=== PATIENT | male | born 1955 | race Caucasian/White ===

== ENCOUNTER 2020-06-30 08:55 | Day surgery (SDC) | payer MEDICARE ==
[2020-06-24 14:54] VITALS: BMI 31.8
[~2020-06-30 08:55] MED LIST: LACTATED RINGERS 1,000 ML IV SCH
[2020-06-30 09:31] VITALS: RESP 16; TEMP 97.9
[2020-06-30] MEDS ORDERED: LIDOCAINE 1% (10MG/ML) FOR IV START INTRADERMA ONE (09:31)
[2020-06-30] MEDS ORDERED: PROPOFOL 10 MG/ML 20 ML VIAL IV ONE (09:39)
--- NOTE | 2020-06-30 09:42 | P.GSHP ---
History of Present Illness H&P Date: 06/30/20 Chief Complaint: Colon cancer screening 64-year-old male here today for colonoscopy. Last colonoscopy 15 years ago. Patient with family history of colon cancer in both parents and grandparents. No bowel complaints. Concerned about hemorrhoids. Past Medical History Past Medical History: Asthma, Hypertension Additional Past Medical History / Comment(s): diverticultitis History of Any Multi-Drug Resistant Organisms: None Reported Past Surgical History: Appendectomy, Orthopedic Surgery Additional Past Surgical History / Comment(s): BILAT VARICOSE VEIN SX, BILAT ROTATOR CUFF REPAIR, COLONOSCOPY, Past Anesthesia/Blood Transfusion Reactions: Postoperative Nausea & Vomiting (PONV) Smoking Status: Current every day smoker - Past Family History Mother Family Medical History: Cancer Father Family Medical History: Cancer Sister(s) Family Medical History: Cancer Additional Family Medical History / Comment(s): 2 SISTERS HAD CANCER Medications and Allergies Home Medications Medication Instructions Recorded Confirmed Type carvediloL [Carvedilol] 12.5 mg PO DAILY 06/24/20 06/30/20 History Allergies Allergy/AdvReac Type Severity Reaction Status Date / Time acetaminophen [From Tylenol] Allergy Abdominal Verified 06/30/20 09:14 Pain Surgical - Exam Vital Signs Temp Pulse Resp BP Pulse Ox 97.9 F 85 16 152/88 97 06/30/20 09:29 06/30/20 09:29 06/30/20 09:29 06/30/20 09:29 06/30/20 09:29 Physical exam: General: Well-developed, well-nourished HEENT: Normocephalic, sclerae nonicteric Abdomen: Nontender, nondistended Extremities: No edema Neuro: Alert and oriented Assessment and Plan (1) Colon cancer screening Narrative/Plan: Proceed with colonoscopy Current Visit: Yes Status: Acute Code(s): Z12.11 - ENCOUNTER FOR SCREENING FOR MALIGNANT NEOPLASM OF COLON SNOMED Code(s): 906847666
--- NOTE | 2020-06-30 10:00 | P.PCN ---
Date of Procedure: 06/30/20 Procedure(s) Performed: PREOPERATIVE DIAGNOSIS: Colon cancer screening POSTOPERATIVE DIAGNOSIS: Small transverse colon polyp, internal and external hemorrhoids PROCEDURE: Colonoscopy with snare polypectomy ANESTHESIA: MAC SURGEON: Pete An M.D. SPECIMENS: Transverse colon polyp ENDOSCOPIC PROCEDURE: The patient was placed on the endoscopy table in the left decubitus position. The Olympus colonoscope was inserted into the anus and passed under direct visualization to the base of the cecum. The appendiceal orifice was visualized. From that point the scope was slowly withdrawn inspecting all surfaces carefully. There were no neoplastic inflammatory or polypoid lesions throughout the cecum and ascending colon. The transverse colon a small polyp seen and removed using the snare with cautery technique. The remainder of the transverse descending sigmoid and rectum was normal. There is no visible diverticulosis. At the anus patient had small internal and external hemorrhoids without inflammatory change or bleeding. Prostate felt slightly enlarged. The patient was taken to the recovery room in stable condition per anesthesia guidelines. RECOMMENDATIONS: Resume diet. Await biopsy results. Follow-up colonoscopy 5 years.
[2020-06-30 10:13] VITALS: PULSE 72
[2020-06-30 10:19] VITALS: BP 148/82
== END 2020-06-30 10:35 | disposition home or self-care (01) ==
LOC: ORWHC2ENDO 08:55
PROVIDERS: ATTEND Surgery
DX: Z12.11 Encounter for screening for malignant neoplasm of colon (principal); D12.3 Benign neoplasm of transverse colon; K64.8 Other hemorrhoids; K64.4 Residual hemorrhoidal skin tags; N40.0 Benign prostatic hyperplasia without lower urinary tract symptoms; J45.909 Unspecified asthma, uncomplicated; I10 Essential (primary) hypertension; K57.90 Diverticulosis of intestine, part unspecified, without perforation or abscess without bleeding; K08.89 Other specified disorders of teeth and supporting structures; F17.200 Nicotine dependence, unspecified, uncomplicated; Z98.890 Other specified postprocedural states; Z90.49 Acquired absence of other specified parts of digestive tract; Z91.89 Other specified personal risk factors, not elsewhere classified; Z79.899 Other long term (current) drug therapy; Z88.6 Allergy status to analgesic agent; Z80.0 Family history of malignant neoplasm of digestive organs; Z80.9 Family history of malignant neoplasm, unspecified
CPT/HCPCS: 88305; 45385; J2704

== ENCOUNTER 2021-07-19 05:37 | Day surgery (SDC) | payer MEDICARE ==
[2021-07-14 15:45] VITALS: BMI 31.8
--- NOTE | 2021-07-18 15:51 | HP ---
HISTORY AND PHYSICAL DATE OF SURGERY: 07/19/2021 Juan Horn is a 65-year-old gentleman seen with symptomatic left knee osteoarthritis. We discussed options for treatment. He elected to proceed with left total knee arthroplasty. Consent was obtained. Medical clearance was provided by Dr. Juan Sosa. PAST MEDICAL HISTORY: Hypertension. PAST SURGICAL HISTORY: Rotator cuff repair, carpal tunnel release, appendectomy. DAILY MEDICATIONS: Coreg, Mobic. ALLERGIES: NONE REPORTED. SOCIAL HISTORY: He denies tobacco use. PHYSICAL EVALUATION OF THE LEFT KNEE: His range of motion is negative 2 to 125. Mild effusion. Tenderness, medial joint line. Crepitus, medial and patellofemoral compartments with range of motion. Pain with patellofemoral compression. Ligaments stable. Hip rotation without pain. Distal neurovascular exam is intact. Radiographs of the left knee reveal severe osteoarthritic changes. IMPRESSION: 1. Left knee osteoarthritis. 2. Hypertension. PLAN: Left total knee arthroplasty. MMODL / IJN: [id number] /
[~2021-07-19 05:37] MED LIST changes: +ACETAMINOPHEN TAB 500 MG TAB PO PRN; +DEXAMETHASONE SOD PHOSPHATE 4 MG/ML 1 ML VIAL IV ONE; +MELOXICAM 7.5 MG TAB PO PRN; +ONDANSETRON 4 MG/2 ML VIAL IVP ONE; +TRANEXAMIC ACID IN NACL,ISO-OS 1,000 MG in SALINE 1 100ML.BAG IVPB PRN
[2021-07-19] MEDS ORDERED: MIDAZOLAM 2 MG/2 ML VIAL IVP ONE (07:00)
[2021-07-19] MEDS ORDERED: SCOPOLAMINE 1 MG/72 HR PATCH TRANSDERM ONE (07:20)
[2021-07-19] MEDS ORDERED: NEOSTIGMINE 1 MG/ML 10 ML VIAL ONE (07:26)
[2021-07-19] MEDS ORDERED: GLYCOPYRROLATE 0.2 MG/ML 2 ML VIAL ONE (07:26)
[2021-07-19] MEDS ORDERED: diphenhydrAMINE 50 MG/ML 1 ML VIAL ONE (07:26)
[2021-07-19] MEDS ORDERED: ROPIVACAINE 5 MG/ML 30 ML VIAL ONE (07:26)
[2021-07-19] MEDS ORDERED: LABETALOL 5 MG/ML VIAL MDV ONE (07:26)
[2021-07-19] MEDS ORDERED: TRANEXAMIC ACID IN NACL,ISO-OS 1,000 MG/100 ML BAG ONE (07:26)
[2021-07-19] MEDS ORDERED: ROCURONIUM 10 MG/ML (5 ML VIAL) IV ONE (07:26)
[2021-07-19] MEDS ORDERED: HYDROmorphone (PF) 1 MG/ML ONE (07:26)
[2021-07-19] MEDS ORDERED: LIDOCAINE 1% INJ 10MG/ML (20 ML MDV) ONE (07:26)
[2021-07-19] MEDS ORDERED: PROPOFOL 10 MG/ML 20 ML VIAL IV ONE (07:26)
[2021-07-19] MEDS ORDERED: SUCCINYLCHOLINE CHLORIDE 100 MG/5 ML SYR IV ONE (07:26)
[2021-07-19] MEDS ORDERED: DEXAMETHASONE SOD PHOSPHATE 4 MG/ML 1 ML VIAL ONE (07:26)
[2021-07-19] MEDS ORDERED: fentaNYL (PF) 50 MCG/ML 2 ML AMP ONE (07:26)
[2021-07-19] MEDS ORDERED: ceFAZolin 1,000 MG in SODIUM CHLORIDE 0.9% 1,000 ML IRRIGATION ONE (07:57)
[2021-07-19] MEDS ORDERED: ROPIVACAINE 0.2%-NS ON-Q PUMP 1,090 MG, EMPTY PAIN BALL 1 EACH MISCELLANE PRN (08:36)
--- NOTE | 2021-07-19 08:38 | P.ANPRN ---
Procedure Note - Anesthesia - Nerve Block Performed Left Adductor Canal Infusion Time Out Performed: Yes Date of Procedure: 07/19/21 Procedure Start Time: 06:59 Location of Patient: PreOp Indication: Acute Post-Operative Pain, Requested by Surgeon Sedation Type: Sedate with meaningful contact maintained Preparation: Sterile Prep, Sterile Dressing Position: Supine Catheter: Indwelling Needle Types: On-Q Needle Gauge: 18 Ultrasound used to visualize needle placement: Yes Ultrasound used to observe medication spread: Yes Injectate: 0.5% Ropivacaine (see comment for volume) (20 ml + decadron 4 mg) Blood Aspirated: No Pain Paresthesia on Injection Noted: No Resistance on Injection: Normal Image Stored and Saved: Yes Events: Uneventful and Well Tolerated Left iPack Single Time Out Performed: Yes Date of Procedure: 07/19/21 Procedure Start Time: 07:12 Location of Patient: PreOp Indication: Acute Post-Operative Pain, Requested by Surgeon Sedation Type: Sedate with meaningful contact maintained Preparation: Sterile Prep, Sterile Dressing Position: Right Lateral Catheter: None Needle Types: Pajunk Needle Gauge: 20 Ultrasound used to visualize needle placement: Yes Ultrasound used to observe medication spread: Yes Injectate: 0.5% Ropivacaine (see comment for volume) (15 ml + decadron 4mg) Blood Aspirated: No Pain Paresthesia on Injection Noted: No Resistance on Injection: Normal Image Stored and Saved: Yes Events: Uneventful and Well Tolerated
[2021-07-19] MEDS ORDERED: LACTATED RINGERS 1,000 ML IV ONE ×2 (08:57→09:05)
[2021-07-19] MEDS ORDERED: NALOXONE 0.4 MG/ML 1 ML VIAL IV PRN (09:05)
[2021-07-19] MEDS ORDERED: ONDANSETRON 4 MG/2 ML VIAL IVP PRN (09:05)
[2021-07-19] MEDS ORDERED: HYDROcodone/APAP 7.5-325MG 1 EACH TAB PO PRN (09:05)
[2021-07-19] MEDS ORDERED: HYDROcodone/APAP 5-325MG 1 EACH TAB PO PRN (09:05)
[2021-07-19] MEDS ORDERED: HYDROmorphone 0.2 MG/1 ML SYRINGE IVP PRN (09:05)
[2021-07-19] MEDS ORDERED: HYDROmorphone 0.5 MG/0.5 ML SYRINGE IVP PRN ×2 (09:05)
--- NOTE | 2021-07-19 09:05 | P.OP ---
Date of Procedure: 07/19/21 Preoperative Diagnosis: Left knee osteoarthritis Postoperative Diagnosis: Left knee osteoarthritis Procedure(s) Performed: Left total knee arthroplasty Implants: 1. Depuy attune size 7 left cruciate retaining cemented femur 2. Depuy attune size 7 fixed bearing cemented tibial baseplate 3. Depuy attune size 7 fixed bearing cruciate retaining 12 mm polyethylene tibial insert 4. Depuy attune 38 mm all polyethylene cemented patella Anesthesia: GETA, regional (Adductor canal catheter, Ipack block) Surgeon: Moses Domínguez Entry Level Drafter #1: Garbiel Ortiz Estimated Blood Loss (ml): 45 Pathology: other (Bone) Condition: stable Disposition: PACU Indications for Procedure: 65-year-old gentleman seen with symptomatic left knee osteoarthritis. After having treatment options discussed, he elected to proceed with total knee arthroplasty. Operative Findings: See description of procedure Description of Procedure: Patient was taken to the operative suite after having an adductor canal catheter placed by the department of anesthesia as well as an Ipack block for postoperative pain management. Patient underwent a general anesthetic by the department of anesthesia. Patient was given preoperative IV intake antibiotics and TXA. A well-padded tourniquet was placed about the left lower extremity. The lower extremity was then prepped and draped in the normal sterile orthopedic fashion. The extremity was elevated, a tourniquet was insufflated to 300. A standard anterior incision was made sharply through skin. Dissection was taken down through the subcutaneous soft tissues down to the extensor mechanism. A medial arthrotomy was performed, patella was everted and knee was flexed. There was advanced osteoarthritis noted. I introduced my distal intramedullary femoral drill. I then introduced the distal femoral cutting jig. Norbert THOMPSON secured the cutting jig with 2 pins. I held retractors in position while Norbert THOMPSON performed the distal femoral resection through the guide area we now removed her distal femoral cutting guide. We now placed our 4-in-1 femoral cutting block and positioned and it was secured with 2 pins by Norbert THOMPSON while I held the block in position. The distal femoral finishing was now completed. A proximal tibial cutting guide was positioned. I held the guide in the appropriate position with both hands well Norbert THOMPSON inserted stabilizing pins into the guide. Proximal tibial cut was made. We now placed a trial femoral component into position, along with an appropriate size tibial tray and insert. We now took the knee through range of motion and had full extension good flexion and good overall soft tissue balance noted. The patella was everted and stabilized with 2 towel clips held by Norbert THOMPSON while I performed a flush with patellar quad tendon utilizing a fresh sawblade. We templated the patella, appropriate drill holes were made. An appropriate trial patella was positioned, knee was taken through full range of motion with the patella tracking very nicely. The trial patella was removed. Drill holes were made through the femoral component. All trial components were removed after m arking off the appropriate rotation of the tibia. Retractors were now positioned along the proximal tibia. An appropriate keel punch was made with the appropriate size tibial guide by myself on Norbert THOMPSON assisted by holding retractors. At this point appropriate size implants were chosen and opened. The joint was irrigated copiously with pulse lavage mechanical irrigation. The posterior capsule was infiltrated with local analgesic. The wound was irrigated with pulse lavage mechanical irrigation. We mixed antibiotic methylmethacrylate. We placed the knee into flexion. We placed mul tiple retractors assisted by Norbert THOMPSON to expose the proximal tibia. Once the methyl methacrylate was ready, the tibial component was cemented into place removing any excess methylmethacrylate form by both myself and Norbert THOMPSON. The femoral component was cemented into place removing the removing any excess methylmethacrylate performed by both myself and Norbert THOMPSON. We then inserted the appropriate size polyethylene tibial insert. We made sure that it was locked into position. We took the knee into full extension, and then back in a flexion making sure we had removed any excess methylmethacrylate. The patellar component was then cemented down and secured with clamp. Excess methylmethacrylate removed. We kept the knee in full extension, patellar clamp in position until methylmethacrylate had hardened. Once it had hardened the patellar clamp was removed. The knee was taken through full range of motion. The patella tracked nicely. There was good soft tissue balancing. The tourniquet was now released. Additional hemostasis was achieved via electrocautery. A second gram of TXA was given. The wound again was irrigated with pulse lavage mechanical irrigation. The superficial soft tissues were infiltrated local analgesic. The extensor mechanism was repaired with Ethibond. We checked the repair with range of motion and it was stable. The subcutaneous soft tissues were repaired with Vicryl in layers. The skin was approximated with pernio/Dermabond. Sterile dressings were applied followed by loose web roll and Sedrick bandage. The patient was transferred to a bed, and taken to recovery in stable and satisfactory condition. Norbert THOMPSON assisted with this complex procedure.
[2021-07-19 09:46] VITALS: TEMP 96.8
[2021-07-19] MEDS: HYDROmorphone 0.5 MG/0.5 ML SYRINGE IVP PRN ×2 (09:52→10:10)
[2021-07-19] MEDS ORDERED: ROPIVACAINE 0.2%-NS ON-Q PUMP 2 MG/ML EACH MISCELLANE ONE (10:00)
[2021-07-19 10:11] VITALS: RESP 16
--- NOTE | 2021-07-19 10:37 | XR ---
Limited left knee HISTORY: Status post left knee arthroplasty 3 views the left knee, no comparisons Patient is status post left knee arthroplasty. There is anatomic alignment. Lucencies present within the soft tissues, there is soft tissue swelling present. IMPRESSION: Orthopedic follow-up.
[2021-07-19] MEDS ORDERED: HYDROcodone/APAP 7.5-325MG 1 EACH TAB PO ONE (11:08)
[2021-07-19] MEDS ORDERED: ceFAZolin 1,000 MG VIAL IVPB ONE (11:40)
[2021-07-19 12:08] VITALS: BP 158/84; PULSE 86
== END 2021-07-19 13:13 | disposition home health service (06) ==
LOC: OR 05:37
PROVIDERS: ATTEND Orthopaedic Surgery
DX: M17.12 Unilateral primary osteoarthritis, left knee (principal); I10 Essential (primary) hypertension; G89.18 Other acute postprocedural pain
CPT/HCPCS: 27447; 97110; 97161; 64999; 64448; 76942; 88300; 73560; C1776; C1713 ×2; J2250; J1200; J1100; J2710; J0690 ×2; J2405; J2001; J3010; J1170 ×2; J2795 ×2; J0330; J2704

== ENCOUNTER 2021-08-23 09:00 | Inpatient (IN) | payer MEDICARE ==
[~2021-08-23 09:00] MED LIST changes: -DEXAMETHASONE SOD PHOSPHATE 4 MG/ML 1 ML VIAL IV ONE; -LACTATED RINGERS 1,000 ML IV SCH; -ONDANSETRON 4 MG/2 ML VIAL IVP ONE
[2021-08-23] MEDS ORDERED: LACTATED RINGERS 1,000 ML IV ONE ×2 (13:46→15:53)
[2021-08-23] MEDS ORDERED: LIDOCAINE 1% (10MG/ML) FOR IV START INTRADERMA PRN (13:47)
[2021-08-23] MEDS ORDERED: ONDANSETRON 4 MG/2 ML VIAL IVP ONE ×2 (13:47→17:44)
[2021-08-23] MEDS ORDERED: LACTATED RINGERS 1,000 ML IV SCH (13:47)
[2021-08-23] MEDS ORDERED: DEXAMETHASONE SOD PHOSPHATE 4 MG/ML 1 ML VIAL IV ONE (13:47)
[2021-08-23] MEDS ORDERED: MIDAZOLAM 2 MG/2 ML VIAL IV ONE (14:32)
[2021-08-23] MEDS ORDERED: fentaNYL (PF) 50 MCG/ML 2 ML AMP IV ONE (14:32)
[2021-08-23] MEDS ORDERED: PROPOFOL 10 MG/ML 20 ML VIAL IV ONE (14:49)
[2021-08-23] MEDS ORDERED: ROPIVACAINE 5 MG/ML 30 ML VIAL ONE (14:49)
[2021-08-23] MEDS ORDERED: fentaNYL (PF) 50 MCG/ML 2 ML AMP ONE (14:49)
[2021-08-23] MEDS ORDERED: HYDROmorphone (PF) 1 MG/ML ONE (14:49)
[2021-08-23] MEDS ORDERED: SODIUM CHLORIDE 0.9% (PF) 10 ML VIAL ONE (14:49)
[2021-08-23] MEDS ORDERED: LIDOCAINE 2% INJ 20 MG/ML (2 ML VIAL) ONE (14:49)
[2021-08-23] MEDS ORDERED: SUCCINYLCHOLINE CHLORIDE 100 MG/5 ML SYR IV ONE (14:49)
--- NOTE | 2021-08-23 15:28 | P.ANPRN ---
Procedure Note - Anesthesia - Nerve Block Performed Left Adductor Canal Single Time Out Performed: Yes (1428) Date of Procedure: 08/23/21 Procedure Start Time: Procedure Stop Time: Location of Patient: PreOp Indication: Acute Post-Operative Pain, Requested by Surgeon Specifically requested for management of pain by DrJaimee: Moses Domínguez Sedation Type: Sedate with meaningful contact maintained Preparation: Sterile Prep Position: Supine Catheter: None Needle Types: Pajunk Needle Gauge: 21 Ultrasound used to visualize needle placement: Yes Ultrasound used to observe medication spread: Yes Injectate: 0.5% Ropivacaine (see comment for volume) (30cc) Blood Aspirated: No Pain Paresthesia on Injection Noted: No Resistance on Injection: Normal Image Stored and Saved: Yes Events: Uneventful and Well Tolerated
[2021-08-23] MEDS ORDERED: ONDANSETRON 4 MG/2 ML VIAL IVP PRN (16:00)
[2021-08-23] MEDS ORDERED: NALOXONE 0.4 MG/ML 1 ML VIAL IV PRN (16:00)
[2021-08-23] MEDS ORDERED: HYDROcodone/APAP 5-325MG 1 EACH TAB PO PRN (16:00)
[2021-08-23] MEDS ORDERED: HYDROmorphone 0.5 MG/0.5 ML SYRINGE IVP PRN (16:00)
--- NOTE | 2021-08-23 16:00 | P.OP ---
Date of Procedure: 08/23/21 Preoperative Diagnosis: Left knee quadriceps tendon tear/medial retinacular tear Postoperative Diagnosis: 1. Left knee quadriceps tendon tear 2. Left knee medial retinacular tear Procedure(s) Performed: 1. Left knee open quadriceps tendon repair 2. Left knee open medial retinacular repair Anesthesia: GETA, regional (Adductor canal block) Surgeon: Moses Domínguez Motorcoach Operator #1: Grabiel Ortiz Estimated Blood Loss (ml): 20 Pathology: none sent Condition: stable Disposition: PACU Indications for Procedure: 65 -year-old patient seen with a probable left knee medial retinacular tear and quadriceps tendon tear with history of previous total knee arthroplasty and multiple postoperative falls. I recommended open repair. The patient was agreeable. Consent was obtained. Operative Findings: See description of procedure Description of Procedure: Patient was taken to the operative suite after having received a and adductor canal block by the department of anesthesia for postoperative pain management. He received preoperative IV antibiotics. He underwent a general anesthetic by the department of anesthesia. A well-padded tourniquet was placed on the proximal left thigh. The left lower extremity was prepped and draped in the normal sterile orthopedic fashion. The extremity is elevated and the tourniquet was insufflated to 300. I made an incision over the previous cicatrix sharply through skin. Once under subcutaneous tissues were noted significant serosanguineous fluid. There was a complete tear of the medial retinaculum all the way from the patellar tendon attachment to the biceps tendon and a vertical tear through the quadriceps tendon itself. It was somewhat scarred down laterally. While expert retraction was performed by Norbert THOMPSON I dissected out the quadriceps tendon. While jossy THOMPSON assisted with expert retraction I dissected out the medial retinaculum. We irrigated the wound out copiously with pulse lavage mechanical irrigation. I performed a lateral release as the lateral retinaculum was quite tight and scarred down. I was able to translate the patella to the midline position after an extensive lateral release. I now with the assistance of Norbert THOMPSON we began repairing the quadriceps tendon in a [id number] fashion utilizing #1 Ethibond. I now repaired the medial retinaculum utilizing #1 Ethibond. I repaired the patellar tendon area utilizing #1 Ethibond. We checked the repair with range of motion and had him flex to about 120 with good stability of the repair and the patella was tracking midline. The subcu soft tissues were repaired with Vicryl. The skin was repaired with running subcuticular suture followed by skin glue. I applied sterile dressings. The tourniquet was released and immediate capillary refill o f the entire extremity noted. Sterile web bone Sedrick bandage were applied. The knee was placed into a long soft knee immobilizer. The patient was awakened and transferred to a bed having tolerated procedure well. Norbert THOMPSON assisted in all aspects of this procedure.
[2021-08-23] MEDS: HYDROmorphone 0.5 MG/0.5 ML SYRINGE IVP PRN ×5 (17:03→23:06)
[2021-08-23] MEDS ORDERED: LABETALOL 5 MG/ML VIAL MDV IVP ONE (17:03)
[2021-08-23] MEDS ORDERED: hydrALAZINE HCL 20 MG/ML 1 ML VIAL IVP ONE (17:50)
[2021-08-23] MEDS: LACTATED RINGERS 1,000 ML IV SCH (17:57)
[2021-08-23] MEDS: HYDROcodone/APAP 7.5-325MG 1 EACH TAB PO PRN (19:51)
[2021-08-23] MEDS: carvediloL 12.5 MG TAB PO SCH (22:03)
[2021-08-24] MEDS: HYDROcodone/APAP 7.5-325MG 1 EACH TAB PO PRN ×3 (02:58→21:40)
[2021-08-24] MEDS: LACTATED RINGERS 1,000 ML IV SCH ×2 (04:20→13:58)
[2021-08-24] MEDS: HYDROmorphone 1 MG/ML 1 ML SYRINGE IVP PRN ×2 (05:59→21:04)
[2021-08-24] MEDS: ENOXAPARIN 40 MG/0.4 ML SYRINGE SQ SCH (07:37)
[2021-08-24] MEDS: ASPIRIN 81 MG PO SCH ×2 (07:38→21:03)
[2021-08-24] MEDS: DOCUSATE 100 MG CAP PO SCH (07:38)
[2021-08-24] MEDS: carvediloL 12.5 MG TAB PO SCH ×2 (07:39→17:10)
[2021-08-24 09:25] LABS: Basophils # (A) 0.01 X 10*3/uL (0.00-0.10); Basophils % (A) 0.1 %; Eosinophils # (A) 0.01 X 10*3/uL (0.04-0.35); Eosinophils % (A) 0.1 %; HCT 41.8 % (39.6-50.0); HGB 14.1 g/dL (13.0-17.0); Immature Grans, Automated 0.4 %; Lymphocytes # (A) 1.54 X 10*3/uL (0.90-5.00); Lymphocytes % (A) 12.9 %; MCH 30.5 pg (27.0-32.0); MCHC 33.7 g/dL (32.0-37.0); MCV 90.3 fL (80.0-97.0); Mean Platelet Volume 11.4 fL (9.5-12.2); Monocytes % (A) 6.7 %; NRBC Per 100 WBC 0 /100 WBCS (0.0-0.0); Neutrophils # (A) 9.53 X 10*3/uL (1.80-7.70); Neutrophils % (A) 79.8 %; Platelet Count 163 X 10*3/uL (140-440); RBC 4.63 X 10*6/uL (4.40-5.60); RDW 12.9 % (11.5-14.5); WBC 11.94 X 10*3/uL (4.50-10.00)
--- NOTE | 2021-08-24 09:59 | P.PN ---
Subjective Progress Note Date: 08/24/21 Principal diagnosis: status post left knee open quadriceps tendon/medial retinacular repair patient is evaluated today at bedside, he is resting in his hospital bed. Patient has not been up and out of bed with therapy a his pain is currently controlled. Denies any headaches, lightheadedness, chest pain or shortness of breatht this time. He is utilizing a knee immobilizer. Objective - Vital Signs Vital signs: Vital Signs Temp 98.7 F 08/24/21 07:17 Pulse 94 08/24/21 07:17 Resp 17 08/24/21 07:17 BP 132/69 08/24/21 07:17 Pulse Ox 96 08/24/21 07:17 FiO2 Intake & Output 08/23/21 08/24/21 08/24/21 18:59 06:59 18:59 Intake Total 1850 1250 Output Total 320 2000 Balance 1530 -750 Weight 103.2 kg 103.2 kg Intake: IV 1850 Intake, IV Titration 1250 Amount Lactated Ringers 1,000 ml 1200 @ 100 mls/hr IV .Q10H [facility] Rx#:[id number] ceFAZolin 2 gm In Sodium 50 Chloride 0.9% 50 ml @ 100 mls/hr IVPB Q8H [facility] Rx#: [id number] Output: Urine 300 2000 Estimated Blood Loss 20 Other: Voiding Method Urinal Urinal - Exam Left lower extremity Immobilizer is in good position and condition. Postop dressing is in good position condition, mild spotty drainage noted. minimal soft tissue swelling and ecchymosis present. Calf is soft, no tenderness with palpation. Plantar flexion, dorsiflexion, EHL, FHL are noted. sensory exam to light touch is intact throughout the extremity, dorsalis pedis pulses 2+ - Labs CBC & Chem 7: 08/24/21 06:19 Labs: Abnormal Lab Results - Last 24 Hours (Table) 08/24/21 Range/Units 06:19 WBC 11.94 H (4.50-10.00) X 10*3/uL Immature Gran # 0.05 H (0.00-0.04) X 10*3/uL Neutrophils # 9.53 H (1.80-7.70) X 10*3/uL Eosinophils # 0.01 L (0.04-0.35) X 10*3/uL Assessment and Plan Assessment: Postoperative day #1 status post left knee open quadriceps tendon/medial retinacular repair Plan: Pain control, continue with current medications. IV pain medication okay for breakthrough GI and DVT prophylaxis, continue subcu medication during inpatient stay, we'll transition oral aspirin after discharge Continue to work with physical therapy, weightbearing as tolerated on the left lower extremity with walker. Patient must be in the immobilizer and ambulatory and sleeping. Okay to remove the bandage when resting at bedside, leave open to air and relieve in full extension Ice and elevate often Medical recommendations Discharge planning: Plan is for discharge to home. Patient will require assistance with a home health care agency. Discussed with patient we will need to utilize either a bedside commode/elevated toilet seat and a shower chair. I discussed this with case management also. I would like to keep the patient in house for 1 additional night for observation, continue his work with physical therapy and time to set up materials for home. Plan for discharge on 08/25/2021 Time with Patient: Less than 30
[2021-08-24] MEDS ORDERED: IPRATROPIUM-ALBUTEROL 3 ML NEB INHALATION PRN (12:39)
[2021-08-24] MEDS ORDERED: PANTOPRAZOLE 40 MG/10 ML VIAL IVP SCH (12:45)
--- NOTE | 2021-08-24 12:58 | P.CONS ---
History of Present Illness - Reason for Consult Consult date: 08/24/21 Medical management chronic intermittent asthma, hypertension, nicotine depe Requesting physician: Moses Domínguez - Chief Complaint Status post left knee open quadricep tendon/ open medial retinacular repair - History of Present Illness This is 65-year-old gentleman status post recent left total knee arthroplasty secondary to left knee osteoarthritis, performed on 07/19/2021, status post fall postoperative sustaining left knee medial retinacular tear as well as a samanta dricep tendon tear, in a patient with past medical history of ongoing nicotine dependence, hypertension, chronic intermittent asthma and multiple other medical issues. Patient is status post left knee open quadriceps tendon/medial retinacular repair, POD #1, tolerated procedure well. Positive diet, Passing flatus. Denies nausea vomiting or diarrhea. Denies abdominal pain. Reports pain controlled. Complains spontaneously without difficulty. Denies chest pain, palpitations or shortness of breath. Afebrile, maintaining O2 sats in the mid 90s. Has not been out of bed yet. Labs pending. Denies any lightheadedness dizziness or focal deficits. Review of Systems ROS Statement: Those systems with pertinent positive or pertinent negative responses have been documented in the HPI. ROS Other: All systems not noted in ROS Statement are negative. Past Medical History Past Medical History: Asthma, Hypertension Additional Past Medical History / Comment(s): diverticultitis History of Any Multi-Drug Resistant Organisms: None Reported Past Surgical History: Appendectomy, Orthopedic Surgery Additional Past Surgical History / Comment(s): BILAT VARICOSE VEIN SX, BILAT ROTATOR CUFF REPAIR, COLONOSCOPY, Past Anesthesia/Blood Transfusion Reactions: Postoperative Nausea & Vomiting (PONV) Past Psychological History: No Psychological Hx Reported Smoking Status: Current every day smoker Past Alcohol Use History: Occasional Additional Past Alcohol Use History / Comment(s): SMOKES 1PPD SINCE AGE 17 Past Drug Use History: None Reported - Past Family History Mother Family Medical History: Cancer Father Family Medical History: Cancer Sister(s) Family Medical History: Cancer Additional Family Medical History / Comment(s): 2 SISTERS HAD CANCER Medications and Allergies Home Medications Medication Instructions Recorded Confirmed Type carvediloL 12.5 mg PO BID 06/24/20 08/23/21 History Aspirin [Adult Low Dose Aspirin EC] 81 mg PO BID #60 tab 07/19/21 08/23/21 Rx Docusate [Colace] 100 mg PO DAILY #30 capsule 07/19/21 08/23/21 Rx HYDROcodone/APAP 7.5-325MG [[place] 1 each PO Q6HR PRN #32 tab 07/19/21 08/23/21 Rx 7.5] Allergies Allergy/AdvReac Type Severity Reaction Status Date / Time No Known Allergies Allergy Verified 08/23/21 13:47 Physical Exam Vitals: Vital Signs Temp Pulse Pulse Resp BP BP Pulse Ox 08/24/21 07:17 98.7 F 94 17 132/69 96 08/24/21 02:00 98.3 F 104 H 18 126/67 96 08/23/21 22:00 103 H 151/82 96 08/23/21 21:00 108 H 160/84 97 08/23/21 20:30 106 H 149/79 98 08/23/21 20:00 111 H 155/85 97 08/23/21 19:30 109 H 193/93 98 08/23/21 19:15 98 161/82 97 08/23/21 19:00 114 H 165/84 96 08/23/21 18:45 94 169/82 97 08/23/21 18:30 96 177/98 98 08/23/21 18:14 92 16 140/68 97 08/23/21 17:58 92 16 183/83 100 08/23/21 17:47 77 16 198/96 100 08/23/21 17:32 82 16 199/94 99 08/23/21 17:18 83 16 201/96 99 08/23/21 17:02 90 16 202/95 100 08/23/21 16:53 91 16 193/94 98 08/23/21 16:37 80 16 175/87 100 08/23/21 16:19 97 F L 86 16 139/73 97 08/23/21 14:33 77 16 155/80 98 08/23/21 13:49 96.7 F L 85 18 173/93 99 Intake and Output 08/23/21 08/24/21 08/24/21 22:59 06:59 14:59 Intake Total 800 1250 Output Total 320 2000 Balance 480 -750 Intake: IV 800 Intake, IV Titration 1250 Amount Lactated Ringers 1,000 ml 1200 @ 100 mls/hr IV .Q10H [facility] Rx#:[id number] ceFAZolin 2 gm In Sodium 50 Chloride 0.9% 50 ml @ 100 mls/hr IVPB Q8H [facility] Rx#: [id number] Output: Urine 300 2000 Estimated Blood Loss 20 Other: Voiding Method Urinal Urinal Weight 103.2 kg PHYSICAL EXAM: VITAL SIGNS: As above GENERAL: Up in bed, no acute distress HEENT: Conjunctivae normal. eyes normal.MMM. NECK: No JVD. No thyroid enlargement. No LNs CARDIOVASCULAR: S1, S2 regular. No murmur RESPIRATION: Breath sounds diminished in the bases. No rhonchi or crackles. No bronchial breathing. ABDOMEN: Soft, nontender . No guarding. no masses palpable. No ascites, No hepatosplenomegaly.Bowel sounds heard. LEGS: Left leg with immobilizer on, Soft, nontender, positive DP PSYCHIATRY: Alert and oriented X3, mood and affect normal. NERVOUS SYSTEM: Cranial N 2-12 grossly normal. No focal deficits. Strength and sensation grossly intact.. Skin: Warm and dry, no rash Results CBC & Chem 7: 08/24/21 06:19 Labs: Abnormal Lab Results - Last 24 Hours (Table) 08/24/21 Range/Units 06:19 WBC 11.94 H (4.50-10.00) X 10*3/uL Immature Gran # 0.05 H (0.00-0.04) X 10*3/uL Neutrophils # 9.53 H (1.80-7.70) X 10*3/uL Eosinophils # 0.01 L (0.04-0.35) X 10*3/uL Assessment and Plan Assessment: status post left knee open quadriceps tendon/medial retinacular repair, status post fall postop sustaining left knee medial retinacular and quadricep tendon tear Recent left total knee arthroplasty 07/19/21 Chronic intermittent asthma Hypertension Ongoing nicotine dependence Plan: Continue on current medication regime ,monitoring and symptomatic treatment. Pain management. PT/OT. Aggressive pulmonary toileting with nebulized bronchodilators, Symbicort ordered, incentive spirometer reinforced. PPI ordered for her GI prophylaxis. At discharge, follow-up with PCP in 1 week. The impression and plan of care has been dictated as directed. : I performed a history and examination of this patient, discussed the same with the dictator. I agree with the dictator's note ,documented as a scribe. Any additional findings or plans will be noted.
[2021-08-24] MEDS: HYDROmorphone 0.5 MG/0.5 ML SYRINGE IVP PRN (14:03)
[2021-08-24] MEDS: NICOTINE 21MG/24HR PATCH TRANSDERM SCH (14:05)
[2021-08-24] MEDS: IPRATROPIUM-ALBUTEROL 3 ML NEB INHALATION SCH ×2 (16:11→19:45)
[2021-08-24] MEDS: SYMBICORT 80-4.5 MCG INHALER INHALATION SCH (19:45)
[2021-08-25] MEDS: LACTATED RINGERS 1,000 ML IV SCH (00:21)
[2021-08-25] MEDS: HYDROcodone/APAP 7.5-325MG 1 EACH TAB PO PRN ×2 (04:52→11:54)
[2021-08-25] MEDS ORDERED: PANTOPRAZOLE 40 MG TABLET PO SCH (07:30)
[2021-08-25 07:34] VITALS: BP 160/91; RESP 17; TEMP 97.9
[2021-08-25] MEDS: ASPIRIN 81 MG PO SCH (07:43)
[2021-08-25] MEDS: NICOTINE 21MG/24HR PATCH TRANSDERM SCH (07:43)
[2021-08-25] MEDS: ENOXAPARIN 40 MG/0.4 ML SYRINGE SQ SCH (07:43)
[2021-08-25] MEDS: DOCUSATE 100 MG CAP PO SCH (07:44)
[2021-08-25] MEDS: carvediloL 12.5 MG TAB PO SCH (07:44)
[2021-08-25] MEDS: IPRATROPIUM-ALBUTEROL 3 ML NEB INHALATION SCH ×2 (08:42→12:07)
[2021-08-25] MEDS: SYMBICORT 80-4.5 MCG INHALER INHALATION SCH (08:42)
--- NOTE | 2021-08-25 10:24 | P.PN ---
Subjective Progress Note Date: 08/25/21 Principal diagnosis: status post left knee open quadriceps tendon/medial retinacular repair patient is evaluated today at bedside, he is resting in his hospital bed. Patient is continuing to use a knee immobilizer. He was able to ambulate with therapy and use of a walker. Denies any headaches, lightheadedness, chest pain or shortness of breatht this time. Objective - Vital Signs Vital signs: Vital Signs Temp 97.9 F 08/25/21 07:33 Pulse 101 H 08/25/21 08:50 Resp 17 08/25/21 07:33 BP 160/91 08/25/21 07:33 Pulse Ox 96 08/25/21 07:33 FiO2 Intake & Output 08/24/21 08/25/21 08/25/21 18:59 06:59 18:59 Intake Total 1080 1080 Output Total 1000 Balance 1080 80 Intake: Oral 1080 1080 Output: Urine 1000 Other: Voiding Method Urinal # Voids 4 - Exam Left lower extremity Immobilizer is in good position and condition. Foam dressing is in good position and condition. Minimal soft tissue swelling and ecchymosis present. Calf is soft, no tenderness with palpation. Plantar flexion, dorsiflexion, EHL, FHL are noted. sensory exam to light touch is intact throughout the extremity, dorsalis pedis pulses 2+ - Labs CBC & Chem 7: 08/24/21 06:19 Assessment and Plan Assessment: Postoperative day #2 status post left knee open quadriceps tendon/medial retinacular repair Plan: Pain control, plan for discharge home on [place] 7.5 mg/325 mg GI and DVT prophylaxis, aspirin 81 mg twice a day for 2 weeks Home health care after discharge The long discussion today with regards to activity level instructions. Patient will utilize knee immobilizer when up and ambulating. Okay to leave open to air while resting flat and elevating. He was also utilizing immobilizer when sleeping. Patient will utilize a walker at all times and ambulating Ice and elevate often Medical recommendations Discharge planning: Stable for discharge home today. Time with Patient: Less than 30
--- NOTE | 2021-08-25 10:30 | P.DS ---
Providers Date of admission: 08/23/21 13:09 Expected date of discharge: 08/25/21 Attending physician: Moses Domínguez Consults: 08/23/21 16:00 Consult Physician Routine Consulting Provider: Juan Sosa Reason/Comments: Medical management Do you want consulting provider notified?: Yes Primary care physician: Juan Sosa Hospital Course: Date of admission: 08/23/2021 Date of discharge: 08/25/2021 Admission diagnosis: Status post left knee open quadriceps tendon/medial retinacular repair Discharge diagnosis: Same Attending physician: Dr. Domínguez Surgical procedures: Left knee open quadriceps tendon/medial retinacular repair Brief history: Patient is a 65-year-old male who had undergone a left total knee arthroplasty in mid July [address] Domínguez. He was evaluated in the outpatient setting after a few falls and injury to the left knee. It was determined the patient had a likely quadriceps tendon/medial retinacular tear. Patient was scheduled for surgery for 08/23/2021. Hospital course: Details of patient's surgery can be found in operative report. Patient tolerated the procedure well and was subsequently transported to orthopedic floor. Patient's orthopeidc and medical care was provided daily. Patient had daily laboratory tests performed for evaluation of overall blood counts. Patient had daily physical therapy to include strengthening range of motion as well as education with walker ambulation. Patient was treated with Lovenox for their postoperative DVT prophylaxis during their inpatient stay. Patient was noted to have a relatively uneventful postoperative course. Patient reported satisfactory pain control with oral pain medications by postoperative day 0. Patient showed satisfactory progress with physical therapy. Patient moved steadily through the program and had no difficulty meeting the goals by postoperative day 2. Given patient's otherwise satisfactory course and having met physical therapy goals, plan is to discharge patient home on postoperative day 2. Discharge condition/disposition: Patient will be discharged home in stable condition. Discharge medications: Instructions are given on resumption of patient's normal daily medications per primary care recommendation, in addition patient will be prescribed [place] 7.5 mg/325 mg, Colace 100 mg, aspirin 81 mg. Discharge instructions: 1. Wound care and infection precautions, keep incision dry and covered while showering, no lotions, creams, moisturizers. No soaking, tubs, pools, hottubs. Do not scrub over the incision. 2. Weight-bear as tolerated with walker / cane until follow-up. 3. Ice and elevate when necessary. Do not exceed 20 minutes per hour with ice pack. 4. Utilize compression sleeve until seen at first follow up appointment. 5. Visiting nursing care. 6. Home physical therapy 7. Pain meds and anticoagulants per prescription. 8. Pain medication has potential to cause constipation. Increase oral fluid and fiber intake. Contact primary care provider if you have not had a bowel movement within 48 hours after discharge 9. No anti-inflammatory medication until discussed at first post operative visit, this including Motrin, Aleve, Mobic, Diclofenac. 10. Follow up in office at 2 weeks postop with Norbert Ortiz PA-C/Matt Mejia 11. Follow up with your primary care doctor 7-10 days after discharge. 12. Contact [facility] with any questions, . Procedures: Left knee open quadriceps tendon/medial retinacular repair Patient Condition at Discharge: Good Plan - Discharge Summary Discharge Rx Participant: Yes New Discharge Prescriptions: New HYDROcodone/APAP 7.5-325MG [[place] 7.5] 1 - 2 each PO Q6HR PRN #42 tab PRN Reason: Pain Discontinued HYDROcodone/APAP 7.5-325MG [[place] 7.5] 1 each PO Q6HR PRN #32 tab PRN Reason: Pain No Action carvediloL 12.5 mg PO BID Aspirin [Adult Low Dose Aspirin EC] 81 mg PO BID #60 tab Docusate [Colace] 100 mg PO DAILY #30 capsule Discharge Medication List carvediloL 12.5 mg PO BID 06/24/20 [History] Aspirin [Adult Low Dose Aspirin EC] 81 mg PO BID #60 tab 07/19/21 [Rx] Docusate [Colace] 100 mg PO DAILY #30 capsule 07/19/21 [Rx] HYDROcodone/APAP 7.5-325MG [[place] 7.5] 1 - 2 each PO Q6HR PRN #42 tab 08/25/21 [Rx] Follow up Appointment(s)/Referral(s): [facility], [NON-STAFF] - As Needed Grabiel Ortiz PAC [PHYSICIAN APPRAISAL SPECIALIST] - 09/08/21 2:10 pm Patient Instructions/Handouts: *Surgery [facility] - ([facility]) Arthroscopic Knee Post-Op Instructions Activity/Diet/Wound Care/Special Instructions: Orthopedic Discharge Instructions: 1. Wound care and infection precautions, keep incision dry and covered while showering, no lotions, creams, moisturizers. No soaking, pools, hot tubs. Do not scrub over incision. 2. Weight-bear as tolerated with walker / cane until follow-up. 3. Ice and elevate when necessary. Do not exceed 20 minutes per hour with ice pack. 4. Utilize compression sleeve until seen at first follow up appointment. 5. Pain meds and anticoagulants per prescription. 6. Pain medication has potential to cause constipation. Increase oral fluid and fiber intake. Contact primary care provider if you have not had a bowel movement within 48 hours after discharge. 7. No anti-inflammatory medication until discussed at first post operative visit, this including Motrin, Aleve, Mobic, Diclofenac. 8. Follow up in office at 2 weeks postop with Norbert Ortiz PA-C/Matt Hauser PA-C 9. Follow up with your primary care doctor 7-10 days after discharge. 10. Contact [facility] with any questions, . Activity level instructions: 1. Utilize knee immobilizer when sleeping and when up and ambulating 2. Utilize walker at all times with ambulation 3. Knee must remain in full extension 4. Ice and elevate Discharge Disposition: HOME WITH HOME HEALTH SERVICES
[2021-08-25 12:22] VITALS: PULSE 90
[2021-08-25] MEDS: HYDROmorphone 1 MG/ML 1 ML SYRINGE IVP PRN (13:05)
--- NOTE | 2021-08-25 13:45 | PN ---
PROGRESS NOTE DATE OF SERVICE: 08/25/2021 This 65-year-old gentleman who was admitted after left knee surgery is improving significantly. No chest pain. No palpitations. No fever. PHYSICAL EXAMINATION: Pulse is 98. Blood pressure 160/91. Respiration 17. Chest: Clear to auscultation. Cardiovascular: S1, S2. Abdomen: Soft. Legs status post surgery. LABS: Reviewed. ASSESSMENT: 1. Status post left total knee joint arthroplasty. 2. History of asthma. 3. Hypertension. 4. History of diverticulitis. RECOMMENDATIONS AND DISCUSSION: Recommend to continue current medications, symptomatic treatment. Resume home medications. DVT prophylaxis. Pain management. The rest of the recommendations per Orthopedic surgery. Follow with the primary physician after discharge. MMODL / IJN: [id number] /
--- NOTE | 2021-08-25 14:16 | P.HPOR ---
History of Present Illness H&P Date: 08/23/21 Chief Complaint: Left knee retinacular tear/quadriceps tendon tear 65-year-old gentleman who had previous undergone left total knee arthroplasty on . He reports having multiple falls. He was seen in the office and noted to have a probable quadriceps tendon/medial retinacular tear. We discussed arthrotomy with retinacular repair/quadriceps tendon repair. He was agreeable and consent was obtained. Review of Systems Constitutional: Reports as per HPI Past Medical History Past Medical History: Asthma, Hypertension Additional Past Medical History / Comment(s): diverticultitis History of Any Multi-Drug Resistant Organisms: None Reported Past Surgical History: Appendectomy, Orthopedic Surgery Additional Past Surgical History / Comment(s): BILAT VARICOSE VEIN SX, BILAT ROTATOR CUFF REPAIR, COLONOSCOPY, Past Anesthesia/Blood Transfusion Reactions: Postoperative Nausea & Vomiting (PONV) Past Psychological History: No Psychological Hx Reported Smoking Status: Current every day smoker Past Alcohol Use History: Occasional Additional Past Alcohol Use History / Comment(s): SMOKES 1PPD SINCE AGE 17 Past Drug Use History: None Reported - Past Family History Mother Family Medical History: Cancer Father Family Medical History: Cancer Sister(s) Family Medical History: Cancer Additional Family Medical History / Comment(s): 2 SISTERS HAD CANCER Medications and Allergies Home Medications Medication Instructions Recorded Confirmed Type carvediloL 12.5 mg PO BID 06/24/20 08/23/21 History Aspirin [Adult Low Dose Aspirin EC] 81 mg PO BID #60 tab 07/19/21 08/23/21 Rx Docusate [Colace] 100 mg PO DAILY #30 capsule 07/19/21 08/23/21 Rx Budesonide/Formoterol Fumarate 1 puff IH BID #10.2 gm 08/25/21 Rx [Symbicort 160-4.5 Mcg Inhaler] HYDROcodone/APAP 7.5-325MG [[place] 1 - 2 each PO Q6HR PRN #42 tab 08/25/21 Rx 7.5] Allergies Allergy/AdvReac Type Severity Reaction Status Date / Time No Known Allergies Allergy Verified 08/23/21 13:47 Physical Examination Osteopathic Statement: *. No significant issues noted on an osteopathic structural exam other than those noted in the History and Physical/Consult. His anterior incisions well-healed. He is able to extend his extremity. He is able flex from 95. There is a palpable defect along the medial retinaculum and quadriceps tendon consistent with tear. There is no evidence for any effective process. He has painless rotation of the hip. His distal neurovascular exam appears intact. Results - Labs Labs: H & H 08/24/21 Range/Units 06:19 Hgb 14.1 (13.0-17.0) g/dL Hct 41.8 (39.6-50.0) % Result Diagrams: 08/24/21 06:19 - Diagnostic results Knee x-ray: image reviewed (There is lateralizing of the patella consistent with medial retinacular tear. Total knee arthroplasty components appear stable) Assessment and Plan Assessment: Left knee medial retinacular tear/quadriceps tendon tear History left total knee arthroplasty Plan: Left knee medial retinacular/quadriceps tendon repair Time with Patient: Less than 30
== END 2021-08-25 13:30 | disposition home health service (06) | DRG 502 ==
LOC: EDSTATUS 09:00 → 2ORMAIN 13:09 → 4SSUR 16:21
PROVIDERS: ADMIT Orthopaedic Surgery; ATTEND Orthopaedic Surgery
PROC: 0JQP0ZZ Repair Left Lower Leg Subcutaneous Tissue and Fascia, Open Approach (ICD-10-PCS; 2021-08-23)
PROC: 0LQM0ZZ Repair Left Upper Leg Tendon, Open Approach (ICD-10-PCS; principal; 2021-08-23 09:00)
DX: S76.122A Laceration of left quadriceps muscle, fascia and tendon, initial encounter (principal); J45.20 Mild intermittent asthma, uncomplicated; I10 Essential (primary) hypertension; F17.210 Nicotine dependence, cigarettes, uncomplicated; Z87.19 Personal history of other diseases of the digestive system; Z96.652 Presence of left artificial knee joint; M17.12 Unilateral primary osteoarthritis, left knee; R29.6 Repeated falls; Z79.51 Long term (current) use of inhaled steroids; Z79.82 Long term (current) use of aspirin; Z79.899 Other long term (current) drug therapy; I83.93 Asymptomatic varicose veins of bilateral lower extremities
CPT/HCPCS: 64447; 76942; 85025; 94640

== ENCOUNTER → 2021-12-28 | Outpatient (CLI) | payer MEDICARE ==
--- NOTE | 2021-12-28 16:47 | MR ---
EXAMINATION TYPE: MR shoulder LT wo con DATE OF EXAM: 12/28/2021 COMPARISON: Prior shoulder MRI 12/03/2015 HISTORY: LEFT SHOULDER PAIN TECHNIQUE: Multiplanar, multisequence imaging of the left shoulder is performed without contrast. FINDINGS: Rotator Cuff: There is a complete rotator cuff tear involving the supraspinatus and infraspinatus ten dons, subscapularis tendon is markedly irregular and likely torn as well. Tendon is retracted to the level of the acromioclavicular joints. Acromioclavicular Joint: There is marked hypertrophic change at the acromioclavicular joint. Fluid si gnal is present in the subacromial subdeltoid bursa. Glenohumeral Joint: The shoulder is high riding. Labrum: The labrum appears grossly intact given limitation of non-arthrogram study. Biceps Tendon: Not seen with certainty Bone marrow signal: Probable bone island present within the bony glenoid as on prior exam Other: Fluid signal is present along the subscapularis musculotendinous junction. IMPRESSION: Rotator cuff tear as described on
== END | disposition home or self-care (01) ==
LOC: RADMRIMAIN 09:26
PROVIDERS: ATTEND Orthopaedic Surgery
DX: M75.112 Incomplete rotator cuff tear or rupture of left shoulder, not specified as traumatic (principal)